=== PATIENT | male | born 1990 | race Two or more races ===

== ENCOUNTER → 2021-05-03 17:12 | Outpatient (CLI) | payer OTHER ==
[~2021-05-03 17:12] MED LIST: AFLEXERYL-LC 41 EACH; DICLOFENAC EPO1 EACH; GABAPENTIN300 M2; HUMULIN N100 UNIT/2 SQ
== END | disposition home or self-care (01) ==
LOC: MRI 17:12
DX: M54.41 Lumbago with sciatica, right side (principal)
CPT/HCPCS: 72148

== ENCOUNTER 2021-05-08 18:08 | Inpatient (IN) | payer OTHER ==
[~2021-05-08] VITALS: Ht 188 cm; Wt 90.7 kg
[2021-05-08] MEDS ORDERED: HUMULIN N100 UNIT/2 SQ (18:23)
--- NOTE | 2021-05-08 18:24 | NUR ---
SE RECIBE PACIENTE ALERTA, ORIENTADO X 3 ESFERAS REFIERE TENER DOLOR EN [facility]A DE [facility], SE ESTIMAN S/V TEMPERATURA 102.8. SE UBICA EN AREA DE PASILLO.
--- NOTE | 2021-05-08 21:47 | NUR ---
EVALUA PTE. SE EDUCA A PTE SOBRE [place] MEDICO. PTE REFIERE COMPRENDER. SE REALIZAN MUESTRAS DE LABORATORIO BAJO MEDIDAS ASEPTIAS. SE ADMINISTRAN MEDICAMENTOS REGAN ORDEN MEDICA. PTE MANEJADO POR .
--- NOTE | 2021-05-09 00:13 | NUR ---
MR. ALBA ADMINISTRA MEDICAMENTO DE INSULINA REGAN ORDEN MEDICA.
--- NOTE | 2021-05-09 07:35 | NUR ---
SE RECIBE PTE DEL TURNO ANTERIOR EN CARMEN NIVEL MAS BAJO CON BARANDAS ELEVADAS POR PRECAUCION. PACIENTE ALERTA Y ORIENTADO X3, PRESENTA BUEN PATRON RESPIRATORIO Y PIEL TIBIA AL TACTO CON AREA DE VENOPUNCION PATENTE Y JONO DE EDEMA Y/O ENROJECIMIENTO RECIBIENDO 0.9% NSS AT 150 ML/HR. PACIENTE CONSULTADO CON DR. LINDSAY KHAN POR COMPLICATED UTI. PENDIENTE DEXTRO A LAS 8 A.M.
[2021-05-11] MEDS ORDERED: DICLOFENAC EPO1 EACH (16:36)
[2021-05-11] MEDS ORDERED: GABAPENTIN300 M2 (16:36)
[2021-05-11] MEDS ORDERED: AFLEXERYL-LC 41 EACH (16:36)
== END 2021-05-22 20:19 | disposition home or self-care (01) | DRG 602 ==
LOC: ER 18:08 → MEDJ 05-09 13:21
PROVIDERS: ADMIT Internal Medicine; ATTEND Internal Medicine
PROC: BW21ZZZ Computerized Tomography (CT Scan) of Abdomen and Pelvis (ICD-10-PCS; 2021-05-08)
PROC: BQ2R1ZZ Computerized Tomography (CT Scan) of Right Lower Extremity using Low Osmolar Contrast (ICD-10-PCS; 2021-05-09)
PROC: BV44ZZZ Ultrasonography of Scrotum (ICD-10-PCS; 2021-05-09)
PROC: BQ3 Imaging, Non-Axial Lower Bones, Magnetic Resonance Imaging (MRI) (ICD-10-PCS; 2021-05-10)
PROC: CW1NLZZ Planar Nuclear Medicine Imaging of Whole Body using Gallium 67 (Ga-67) (ICD-10-PCS; 2021-05-13)
PROC: B24BYZZ Ultrasonography of Heart with Aorta using Other Contrast (ICD-10-PCS; 2021-05-14)
PROC: 02HV33Z Insertion of Infusion Device into Superior Vena Cava, Percutaneous Approach (ICD-10-PCS; principal; 2021-05-16)
PROC: 30233N1 Transfusion of Nonautologous Red Blood Cells into Peripheral Vein, Percutaneous Approach (ICD-10-PCS; 2021-05-17)
DX: L03.115 Cellulitis of right lower limb (principal); A41.9 Sepsis, unspecified organism; N39.0 Urinary tract infection, site not specified; R65.10 Systemic inflammatory response syndrome (SIRS) of non-infectious origin without acute organ dysfunction; D47.3 Essential (hemorrhagic) thrombocythemia; D53.9 Nutritional anemia, unspecified; E10.65 Type 1 diabetes mellitus with hyperglycemia; M54.5 Low back pain; Z20.822 Contact with and (suspected) exposure to COVID-19

== ENCOUNTER 2025-03-25 13:56 | Emergency (ER) | payer OTHER ==
[~2025-03-25] VITALS: Ht 185.4 cm; Wt 104.3 kg
[~2025-03-25 13:56] MED LIST changes: +COZAAR100 MG PO; +HUMULIN R100 UNIT/1 SUBCUTANEO; +LIPITOR40 MG; +TOPROL XL50 M1
[2025-03-25] MEDS ORDERED: COZAAR100 MG (14:17)
[2025-03-25] MEDS ORDERED: ACETAMINOPHEN 500 MG GEL..CAP PO ONE ×2 (15:15→15:40)
[2025-03-25] MEDS ORDERED: LABETALOL HCL 100 MG/20 ML ML IV ONE (15:15)
[2025-03-25] MEDS ORDERED: 0.9 % SODIUM CHLORIDE 500 ML IV ONE (15:15)
[2025-03-25] MEDS ORDERED: LABETALOL HCL 100 MG/20 ML ML ONE (16:01)
[2025-03-25 16:07] LABS: BASO % 0.5 % (0.1-1.2); EOS # 0.13 (0.04-0.54); EOS % 1.7 % (0.7-7.0); HEMOGLOBIN 10.9 g/dL (13.7-17.5); LYMPH # 2.14 (1.18-3.74); LYMPH % 27.5 % (19.3-53.1); MEAN CORPUSCULAR HEMOGLOBIN 29.1 pg (25.6-32.2); MONO # 0.46 (0.24-0.82); MONO % 5.9 % (4.7-12.5); NEUT % 64.1 % (34.0-71.1); PLATELET COUNT 408 K/uL (163-369); RED BLOOD COUNT 3.74 M/uL (4.63-6.08); RED CELL DISTRIBUTION WIDTH 12.7 % (11.6-14.4)
[2025-03-25 16:47] LABS: INR 0.95; PARTIAL THROMBOPLASTIN TIME 30.8 SECONDS (22.0-34.0); PROTHROMBIN TIME 10.4 SECONDS (9.0-11.5)
[2025-03-25 16:52] LABS: ALBUMIN 2.4 gm/dL (3.4-5.0); BILIRUBIN TOTAL 0.44 mg/dL (0.3-1.2); CALCIUM 8.4 mg/dL (8.5-10.1); CREATININE SERUM 2.32 mg/dL (0.70-1.30); GFR 32.39; GLOBULINA 3.1 G/DL (2.4-3.5); MAGNESIUM 1.9 mg/dL (1.8-2.4); PHOSPHOROUS 2.7 mg/dL (2.5-4.9); POTASSIUM 3.93 mEq/L (3.5-5.1); TOTAL PROTEIN 5.5 gm/dL (6.4-8.2)
[2025-03-25 17:38] LABS: URINE APPEARANCE Clear; URINE BILIRRUBIN Negative (NEGATIVE); URINE BLOOD Small; URINE COLOR Yellow; URINE KETONE Negative (NEGATIVE); URINE LEUKOCYTE Negative; URINE NITRATE Negative; URINE PROTEIN >=1000 (NEGATIVE)
[2025-03-25 17:42] LABS: URINE BACTERIA 138.2 uL (0.0-1933); URINE CAST 3.24 uL (0.0-1.40); URINE RBC 36.6 uL (0.0-20.8); URINE WBC 32.6 uL (0.0-23.2)
[2025-03-25 18:01] LABS: URINE CRYSTALS NEGATIVE /HPF; URINE GLUCOSE 250 MG/DL (NEGATIVE); URINE MUCUS SCANT
[2025-03-25] MEDS ORDERED: NIFEDIPINE 10 MG CAPSULE PO ONE ×2 (19:45→19:59)
[2025-03-25] MEDS ORDERED: hydrALAZINE HCL 20 MG VIAL IV ONE (21:45)
[2025-03-25] MEDS ORDERED: hydrALAZINE HCL 20 MG VIAL ONE (21:50)
== END 2025-03-26 02:36 | disposition home or self-care (01) ==
LOC: ER 13:56
PROVIDERS: Emergency Medicine
DX: N18.30 Chronic kidney disease, stage 3 unspecified (principal); I10 Essential (primary) hypertension; N28.9 Disorder of kidney and ureter, unspecified; E10.9 Type 1 diabetes mellitus without complications; Z79.4 Long term (current) use of insulin

== ENCOUNTER 2025-05-04 11:20 | Inpatient (IN) | payer OTHER ==
[~2025-05-04] VITALS: Ht 182.9 cm; Wt 104.3 kg
[~2025-05-04 11:20] MED LIST changes: +COZAAR100 MG
[2025-05-04] MEDS ORDERED: HYDROCHLOROTH12.5 M2 PO (11:38)
[2025-05-04] MEDS ORDERED: AMLODIPINE BESYL5 MG PO (11:39)
[2025-05-04] MEDS ORDERED: CEFTRIAXONE SODIUM 2,000 MG VIAL IV ONE (13:00)
[2025-05-04] MEDS ORDERED: BACTRIM DS TAB1 EACH PO (13:03)
[2025-05-04 13:40] LABS: BASO % 0.4 % (0.1-1.2); EOS # 0.11 (0.04-0.54); EOS % 0.6 % (0.7-7.0); LYMPH # 1.80 (1.18-3.74); LYMPH % 9.4 % (19.3-53.1); MEAN PLATELET VOLUME 9.20 fl (9.4-12.4); MONO # 0.97 (0.24-0.82); MONO % 5.1 % (4.7-12.5); NEUT # 16.12 (1.56-6.13); NEUT % 84.1 % (34.0-71.1); RED CELL DISTRIBUTION WIDTH 11.8 % (11.6-14.4)
[2025-05-04] MEDS ORDERED: 0.9 % SODIUM CHLORIDE 1,000 ML IV SCH (14:15)
[2025-05-04 14:28] LABS: ALT/SGPT 18.0 U/L (12-78); AST/SGOT 37.0 U/L (15-37); BILIRUBIN TOTAL 1.22 mg/dL (0.3-1.2); BUN CREA RATIO 7.0 (7.0-25.0); CREATININE SERUM 2.79 mg/dL (0.70-1.30); GFR 26.18; GLOBULINA 4.8 G/DL (2.4-3.5); GLUCOSE FASTING 81.0 mg/dL (65-100); OSMOLALITY SERUM 281.0 MOSM/KG (275-295)
[2025-05-04] MEDS ORDERED: PIPERACILLIN/TAZOBACTAM SODIUM 2.25 GM in DEXTROSE 5 % IN WATER 50 ML IV SCH (19:35)
[2025-05-04] MEDS ORDERED: hydrALAZINE HCL 20 MG VIAL IV PRN (19:45)
[2025-05-04] MEDS ORDERED: ACETAMINOPHEN 500 MG GEL..CAP PO PRN (19:45)
[2025-05-04] MEDS ORDERED: POTASSIUM CHLORIDE IN WATER 100 ML IV SCH (21:00)
[2025-05-05 03:26] LABS: INR 0.96
[2025-05-05 03:40] LABS: TSH 0.52 uIU/mL (0.358-3.74)
[2025-05-05 05:10] VITALS: BP 143/80; O2SAT 96
[2025-05-05] MEDS ORDERED: DEXTROSE 50 % IN WATER 0.5 G/ML DISP.SYRIN IV PRN (06:45)
[2025-05-05] MEDS ORDERED: INSULIN LISPRO 1,000 UNIT/10 ML UNITS SUBCUTANEO PRN (06:45)
[2025-05-05 07:00] VITALS: BP 151/90; O2SAT 99
[2025-05-05] MEDS ORDERED: INSULIN NPH HUMAN ISOPHANE 1,000 UNITS/10 ML UNITS SUBCUTANEO SCH ×2 (08:00→21:00)
[2025-05-05] MEDS ORDERED: INSULIN LISPRO 1,000 UNIT/10 ML UNITS SUBCUTANEO SCH (08:00)
[2025-05-05] MEDS ORDERED: FAMOTIDINE/PF 20 MG in 0.9 % SODIUM CHLORIDE 8 ML IV PUSH SCH (09:00)
[2025-05-05] MEDS ORDERED: METOPROLOL SUCCINATE 100 MG TAB.SR.24H PO SCH (09:00)
[2025-05-05] MEDS ORDERED: ENOXAPARIN SODIUM 30 MG/0.3 ML SYRINGE SUBCUTANEO SCH (09:00)
[2025-05-05] MEDS ORDERED: LINEZOLID 600 MG TABLET PO SCH (17:00)
[2025-05-05 17:29] VITALS: BP 168/102
[2025-05-05] MEDS ORDERED: AMINO ACIDS/PROTEIN HYDROLYS 30 ML BLIST.PACK PO SCH (21:41)
[2025-05-05 22:08] VITALS: BP 168/90
[2025-05-06 02:33] VITALS: BP 144/66; O2SAT 99
[2025-05-06 06:42] LABS: BASO % 0.5 % (0.1-1.2); EOS # 0.23 (0.04-0.54); EOS % 1.1 % (0.7-7.0); LYMPH # 2.19 (1.18-3.74); LYMPH % 10.5 % (19.3-53.1); MEAN PLATELET VOLUME 9.50 fl (9.4-12.4); MONO # 1.72 (0.24-0.82); MONO % 8.3 % (4.7-12.5); NEUT # 16.48 (1.56-6.13); NEUT % 79.0 % (34.0-71.1); RED CELL DISTRIBUTION WIDTH 12.0 % (11.6-14.4)
[2025-05-06 07:16] LABS: ALT/SGPT 13.0 U/L (12-78); AST/SGOT 30.0 U/L (15-37); BILIRUBIN TOTAL 0.89 mg/dL (0.3-1.2); BUN CREA RATIO 8.0 (7.0-25.0); CREATININE SERUM 2.47 mg/dL (0.70-1.30); GFR 30.13; GLOBULINA 3.1 G/DL (2.4-3.5); GLUCOSE FASTING 79.0 mg/dL (65-100); OSMOLALITY SERUM 286.0 MOSM/KG (275-295)
[2025-05-06 09:38] VITALS: BP 172/85
[2025-05-06 17:29] VITALS: BP 190/104; O2SAT 97
[2025-05-06 17:50] VITALS: BP 180/100
[2025-05-06 20:29] VITALS: BP 184/104; O2SAT 100
[2025-05-06] MEDS ORDERED: POTASSIUM CHLORIDE 20MEQ/100ML H2O PB IV SCH (20:45)
[2025-05-07 01:34] VITALS: BP 111/68; O2SAT 98
[2025-05-07 08:00] VITALS: BP 174/98; O2SAT 99
[2025-05-07] MEDS ORDERED: INSULIN NPH HUMAN ISOPHANE 1,000 UNITS/10 ML UNITS SUBCUTANEO SCH (08:00)
[2025-05-07 14:24] LABS: URINE PROT QUANT 24HR 475.0 MG/DL
[2025-05-07 14:26] LABS: URINE PROT QUANT 24 HR 9500.0 MG/24HR (42-225)
[2025-05-07 14:28] LABS: CREATINE CLEARANCE 48.2 ML/MIN (97-137); CREATININE SERUM 2.47 mg/dL (0.8-1.3)
[2025-05-07 18:42] VITALS: BP 187/104; O2SAT 97
[2025-05-07 20:57] VITALS: BP 180/100
[2025-05-08 01:38] VITALS: BP 133/80; O2SAT 100
[2025-05-08 08:10] LABS: BASO % 0.5 % (0.1-1.2); EOS # 0.55 (0.04-0.54); EOS % 4.9 % (0.7-7.0); LYMPH # 1.79 (1.18-3.74); LYMPH % 15.8 % (19.3-53.1); MEAN PLATELET VOLUME 9.20 fl (9.4-12.4); MONO # 0.93 (0.24-0.82); MONO % 8.2 % (4.7-12.5); NEUT # 7.91 (1.56-6.13); NEUT % 70.0 % (34.0-71.1); RED CELL DISTRIBUTION WIDTH 11.9 % (11.6-14.4)
[2025-05-08 08:16] LABS: ALT/SGPT 11.0 U/L (12-78); AST/SGOT 19.0 U/L (15-37); BILIRUBIN TOTAL 0.41 mg/dL (0.3-1.2); BUN CREA RATIO 10.0 (7.0-25.0); CREATININE SERUM 2.71 mg/dL (0.70-1.30); GFR 27.07; GLOBULINA 3.0 G/DL (2.4-3.5); GLUCOSE FASTING 159.0 mg/dL (65-100); OSMOLALITY SERUM 296.0 MOSM/KG (275-295)
[2025-05-08 10:01] VITALS: BP 150/90; O2SAT 98
[2025-05-08 17:27] VITALS: BP 200/108; O2SAT 97
[2025-05-08] MEDS ORDERED: hydrALAZINE HCL 20 MG VIAL IV ONE (20:45)
[2025-05-08 20:54] VITALS: BP 200/110
[2025-05-08] MEDS ORDERED: SODIUM CHLORIDE 0.45 % 1,000 ML IV SCH (21:15)
[2025-05-09 00:38] VITALS: BP 163/82; O2SAT 96
[2025-05-09 09:39] VITALS: BP 160/86; O2SAT 96
[2025-05-09] MEDS ORDERED: LACTOBACILLUS ACIDOPHILUS 1 CAP CAP PO SCH (13:00)
[2025-05-09] MEDS ORDERED: PANTOPRAZOLE SODIUM 40 MG/VIAL VIAL IV SCH (13:07)
[2025-05-09 14:52] LABS: BASO % 0.5 % (0.1-1.2); EOS # 0.43 (0.04-0.54); EOS % 3.7 % (0.7-7.0); LYMPH # 1.96 (1.18-3.74); LYMPH % 16.7 % (19.3-53.1); MEAN PLATELET VOLUME 8.80 fl (9.4-12.4); MONO # 0.65 (0.24-0.82); MONO % 5.6 % (4.7-12.5); NEUT # 8.44 (1.56-6.13); NEUT % 72.0 % (34.0-71.1); RED CELL DISTRIBUTION WIDTH 12.2 % (11.6-14.4)
[2025-05-09 17:38] VITALS: BP 196/101; O2SAT 100
[2025-05-09 22:06] VITALS: BP 160/100
[2025-05-10 01:26] VITALS: BP 150/77; O2SAT 99
[2025-05-10 06:12] LABS: BASO % 0.8 % (0.1-1.2); EOS # 0.41 (0.04-0.54); EOS % 4.0 % (0.7-7.0); LYMPH # 2.02 (1.18-3.74); LYMPH % 19.9 % (19.3-53.1); MEAN PLATELET VOLUME 8.90 fl (9.4-12.4); MONO # 0.82 (0.24-0.82); MONO % 8.1 % (4.7-12.5); NEUT # 6.69 (1.56-6.13); NEUT % 65.8 % (34.0-71.1); RED CELL DISTRIBUTION WIDTH 12.3 % (11.6-14.4)
[2025-05-10 06:43] LABS: BUN CREA RATIO 11.0 (7.0-25.0); CREATININE SERUM 2.23 mg/dL (0.70-1.30); GFR 33.9; GLUCOSE FASTING 194.0 mg/dL (65-100); OSMOLALITY SERUM 287.0 MOSM/KG (275-295)
[2025-05-10 09:21] VITALS: BP 154/89; O2SAT 99
[2025-05-10] MEDS ORDERED: INSULIN LISPRO 1,000 UNIT/10 ML UNITS SUBCUTANEO SCH (12:00)
[2025-05-10 17:03] VITALS: BP 156/80; O2SAT 98
[2025-05-11 01:32] VITALS: BP 152/76; O2SAT 95
[2025-05-11 06:26] LABS: BASO % 0.6 % (0.1-1.2); EOS # 0.44 (0.04-0.54); EOS % 3.7 % (0.7-7.0); LYMPH # 1.89 (1.18-3.74); LYMPH % 16.0 % (19.3-53.1); MEAN PLATELET VOLUME 8.60 fl (9.4-12.4); MONO # 0.86 (0.24-0.82); MONO % 7.3 % (4.7-12.5); NEUT # 8.36 (1.56-6.13); NEUT % 70.8 % (34.0-71.1); RED CELL DISTRIBUTION WIDTH 12.2 % (11.6-14.4)
[2025-05-11 09:12] VITALS: BP 177/93; O2SAT 97
[2025-05-11 17:49] VITALS: BP 182/105; O2SAT 96
[2025-05-11 18:48] LABS: ob NEGATIVE (NEGATIVE)
[2025-05-11] MEDS ORDERED: FERROUS SULFATE 325 MG TABLET.EC PO SCH (21:00)
[2025-05-12 02:53] VITALS: BP 174/90; O2SAT 97
[2025-05-12] MEDS ORDERED: INSULIN NPH HUMAN ISOPHANE 1,000 UNITS/10 ML UNITS SUBCUTANEO SCH ×2 (08:00→21:00)
[2025-05-12 08:45] VITALS: BP 183/90
[2025-05-12] MEDS ORDERED: CHLORHEXIDINE GLUCONATE 120 ML BOTTLE TOP SCH (09:00)
[2025-05-12] MEDS ORDERED: MUPIROCIN 15 GM OINT..GM TUBE NASAL SCH (09:00)
[2025-05-12 09:12] LABS: BUN CREA RATIO 9.0 (7.0-25.0); CREATININE SERUM 2.35 mg/dL (0.70-1.30); GFR 31.91; OSMOLALITY SERUM 294.0 MOSM/KG (275-295)
[2025-05-12 09:13] LABS: GLUCOSE FASTING 203.0 mg/dL (65-100)
[2025-05-12 11:12] LABS: BASO % 0.5 % (0.1-1.2); EOS # 0.34 (0.04-0.54); EOS % 2.7 % (0.7-7.0); LYMPH # 1.43 (1.18-3.74); LYMPH % 11.5 % (19.3-53.1); MEAN PLATELET VOLUME 8.70 fl (9.4-12.4); MONO # 0.74 (0.24-0.82); MONO % 6.0 % (4.7-12.5); NEUT # 9.73 (1.56-6.13); NEUT % 78.3 % (34.0-71.1); RED CELL DISTRIBUTION WIDTH 12.4 % (11.6-14.4)
[2025-05-12 16:45] VITALS: BP 141/82; O2SAT 98
[2025-05-12] MEDS ORDERED: NIFEDIPINE 30 MG TAB.SA.OSM PO SCH (17:00)
[2025-05-12] MEDS ORDERED: EPOETIN ALFA-EPBX 10,000 UNIT/ML VIAL (Retacrit) SUBCUTANEO SCH (21:42)
[2025-05-12] MEDS ORDERED: EPOETIN ALFA-EPBX 10,000 UNIT/ML VIAL (Retacrit) ONE (21:45)
[2025-05-13 01:27] VITALS: BP 172/90; O2SAT 97
[2025-05-13 03:29] VITALS: BP 180/100
[2025-05-13 09:05] VITALS: BP 175/87
[2025-05-13 16:00] VITALS: BP 167/89
[2025-05-14 00:49] VITALS: BP 166/96; O2SAT 99
[2025-05-14 04:32] VITALS: BP 150/85; O2SAT 97
[2025-05-14] MEDS ORDERED: INSULIN NPH HUMAN ISOPHANE 1,000 UNITS/10 ML UNITS SUBCUTANEO SCH ×2 (08:00→21:00)
[2025-05-14] MEDS ORDERED: INSULIN LISPRO 1,000 UNIT/10 ML UNITS SUBCUTANEO SCH (08:00)
[2025-05-14] MEDS ORDERED: PANTOPRAZOLE SODIUM 40 MG TABLET.DR PO SCH (09:00)
[2025-05-14 10:04] VITALS: BP 136/83; O2SAT 97
[2025-05-14] MEDS ORDERED: AMINO ACIDS 1 EACH TABLET PO SCH (13:00)
[2025-05-14] MEDS ORDERED: NIFEDIPINE 90 MG TAB.SA.OSM PO SCH (17:00)
[2025-05-14] MEDS ORDERED: EPOETIN ALFA-EPBX 10,000 UNIT/ML VIAL (Retacrit) SUBCUTANEO SCH (21:00)
== END 2025-05-14 16:29 | disposition home or self-care (01) | DRG 570 ==
LOC: ER 11:20 → SEC-K 19:54 → MEDI 19:54 → MEDJ 05-11 14:42
PROVIDERS: General Practice; Internal Medicine; Internal Medicine Infectious Disease; Specialist/Technologist, Other Nephrology; ADMIT Internal Medicine; ATTEND Internal Medicine
PROC: 02HV33Z Insertion of Infusion Device into Superior Vena Cava, Percutaneous Approach (ICD-10-PCS; 2025-05-05)
PROC: BT4JZZZ Ultrasonography of Kidneys and Bladder (ICD-10-PCS; 2025-05-06)
PROC: 0JB70ZZ Excision of Back Subcutaneous Tissue and Fascia, Open Approach (ICD-10-PCS; principal; 2025-05-10)
PROC: B04BZZZ Ultrasonography of Spinal Cord (ICD-10-PCS; 2025-05-10)
PROC: 8E0ZXY6 Isolation (ICD-10-PCS; 2025-05-11)
DX: L02.212 Cutaneous abscess of back [any part, except buttock and flank] (principal); A41.9 Sepsis, unspecified organism; L02.11 Cutaneous abscess of neck; E10.65 Type 1 diabetes mellitus with hyperglycemia; Z79.4 Long term (current) use of insulin; I48.91 Unspecified atrial fibrillation; D64.9 Anemia, unspecified; E87.6 Hypokalemia; I12.9 Hypertensive chronic kidney disease with stage 1 through stage 4 chronic kidney disease, or unspecified chronic kidney disease; E10.22 Type 1 diabetes mellitus with diabetic chronic kidney disease; N18.30 Chronic kidney disease, stage 3 unspecified; B95.62 Methicillin resistant Staphylococcus aureus infection as the cause of diseases classified elsewhere